=== PATIENT | male | born 1950 | race Caucasian/White ===

== ENCOUNTER 2016-12-20 12:04 | Emergency (ER) | payer MEDICARE, OTHER ==
[~2016-12-20] VITALS: Ht 177.8 cm; Wt 110.0 kg
[~2016-12-20 12:04] MED LIST: AMITRIPTYLIN10 MG PO; ASPIRIN LOW DOS81 M2 PO; CLARINEX5 MG PO; DEBROX6.5 % AU; FISH OIL1000 MG PO; KENALOG-4040 MG/ML IC; LISINOP/HCTZ1 TA2 PO; NAPROSYN500 MG PO; SERTRALINE50 MG PO; SIMVASTATIN20 MG PO; VERAPAMIL HCL240 MG PO
[2016-12-20] MEDS ORDERED: KEFLEX500 MG PO (13:21)
[2016-12-20 13:49] VITALS: BP 136/64
== END 2016-12-20 14:01 | disposition home or self-care (01) ==
LOC: ED 12:04
PROC: 0HQFXZZ Repair Right Hand Skin, External Approach (ICD-10-PCS; principal; 2016-12-20)
DX: S61.411A Laceration without foreign body of right hand, initial encounter (principal); W27.0XXA Contact with workbench tool, initial encounter; Y93.89 Activity, other specified; Y92.009 Unspecified place in unspecified non-institutional (private) residence as the place of occurrence of the external cause

== ENCOUNTER → 2018-10-19 | Outpatient (REF) | payer MEDICARE, OTHER ==
[~2018-10-19] MED LIST changes: +KEFLEX500 MG PO
[2018-10-19 08:29] LABS: HEMATOCRIT 49.6 % (39.0-50.0); HEMOGLOBIN 15.7 g/dl (14.0-18.0); IMMATURE GRANULOCYTES 0.4 % (0.0-5.0); MEAN CELL VOLUME 88.3 fL CALC (80.0-100.0); MEAN CORPUSCULAR HGB 27.9 pG CALC (26.0-32.0); MEAN CORPUSCULAR HGB CONC 31.7 g/L CALC (32.0-36.0); NEUT# 6.23 thou/uL (1.82-7.42); RED BLOOD COUNT 5.62 mill/uL (4.70-6.10); RED CELL DISTRI WIDTH 15.4 % (11.5-15.5)
[2018-10-19 09:10] LABS: URINE BILIRUBIN - DIPSTICK NEGATIVE (NEGATIVE); URINE BLOOD DIPSTICK NEGATIVE (NEGATIVE); URINE COLOR YELLOW; URINE GLUCOSE - DIPSTICK NEGATIVE (NEGATIVE); URINE KETONE NEGATIVE (NEGATIVE); URINE LEUK ESTERASE NEGATIVE (Negative); URINE NITRITE - DIPSTICK NEGATIVE (Negative); URINE PROTEIN - DIPSTICK NEGATIVE (NEG-TRACE); URINE UROBILINOGEN - DIPSTICK 0.2 E.U./dL (0.2)
[2018-10-19 09:12] LABS: URINE CLARITY CLEAR
[2018-10-19 09:15] LABS: ALBUMIN 4.5 g/dL (3.2-5.0); ALKALINE PHOSPHATASE 65 u/l (38-126); ANION GAP 15 (6-22 (CALC)); BILIRUBIN, TOTAL 0.8 mg/dL (0.0-1.4); BUN 18 mg/dL (8-23); BUN/CREATININE RATIO 21 (12-20 (CALC)); CALCULATED LDLCHOLESTEROL 46 mg/dL (62-129 (CALC)); CARBON DIOXIDE 28 mmol/l (22-30); CHLORIDE 99 mmol/l (95-108); CHOLESTEROL HDL RATIO 3.3 (<4.4 (CALC)); CREATININE 0.9 mg/dL (0.7-1.3); GFR > 60 ML/MIN (>=60 (CALC)); GFR FOR AFR.AMER. > 60 ML/MIN (>=60 (CALC)); HDL CHOLESTEROL 41 mg/dL (>=40); SGOT/AST 61 u/l (19-48); SODIUM 138 mmol/l (137-146); TOTAL CHOLESTEROL 134 mg/dl (0-199); TOTAL PROTEIN 7.5 g/dL (6.3-8.2); TOTAL TRIGLYCERIDES 236 mg/dl (30-149); VLDL CHOLESTROL 47 mg/dl (4-45 (CALC))
== END | disposition home or self-care (01) ==
LOC: LAB 07:24
PROVIDERS: ATTEND Internal Medicine
DX: I10 Essential (primary) hypertension (principal); J44.1 Chronic obstructive pulmonary disease with (acute) exacerbation; M62.81 Muscle weakness (generalized); R53.83 Other fatigue; Z12.5 Encounter for screening for malignant neoplasm of prostate

== ENCOUNTER → 2018-10-26 | Outpatient (REF) | payer MEDICARE, OTHER | END | disposition home or self-care (01) | LOC: CT 12:08 | PROVIDERS: ATTEND Internal Medicine | DX: M54.12 Radiculopathy, cervical region (principal); R51 Headache ==

== ENCOUNTER 2019-08-06 | Emergency (ER) | payer MEDICARE, OTHER ==
[2019-08-06] MEDS ORDERED: KEFLEX500 M1 PO (17:25)
== END 2019-08-06 17:40 | disposition home or self-care (01) ==
PROC: 0HQGXZZ Repair Left Hand Skin, External Approach (ICD-10-PCS; principal; 2019-08-06)
DX: S61.012A Laceration without foreign body of left thumb without damage to nail, initial encounter (principal); I10 Essential (primary) hypertension; F17.210 Nicotine dependence, cigarettes, uncomplicated; W31.2XXA Contact with powered woodworking and forming machines, initial encounter; Y93.89 Activity, other specified; Y92.009 Unspecified place in unspecified non-institutional (private) residence as the place of occurrence of the external cause

== ENCOUNTER 2020-08-23 07:47 | Day surgery (SDC) | payer MEDICARE, OTHER ==
[~2020-08-23] VITALS: Ht 177.8 cm; Wt 109.3 kg
[~2020-08-23 07:47] MED LIST changes: +EMGALITY120 MG/M1 SC; +KEFLEX500 M1 PO; +PRESERVISION ARED1 PO
[2020-08-23 10:22] VITALS: BP 119/66
== END 2020-08-23 10:30 | disposition home or self-care (01) ==
LOC: ENDO 07:47 → ORM 09:30 → ENDO 09:30
PROVIDERS: ATTEND Surgery
PROC: 0DBK8ZX Excision of Ascending Colon, Via Natural or Artificial Opening Endoscopic, Diagnostic (ICD-10-PCS; principal; 2020-08-23)
PROC: 0DBH8ZX Excision of Cecum, Via Natural or Artificial Opening Endoscopic, Diagnostic (ICD-10-PCS; 2020-08-23)
PROC: 0DBP8ZX Excision of Rectum, Via Natural or Artificial Opening Endoscopic, Diagnostic (ICD-10-PCS; 2020-08-23)
DX: Z12.11 Encounter for screening for malignant neoplasm of colon (principal); D12.2 Benign neoplasm of ascending colon; D12.0 Benign neoplasm of cecum; D12.8 Benign neoplasm of rectum; K57.30 Diverticulosis of large intestine without perforation or abscess without bleeding; I10 Essential (primary) hypertension; F17.210 Nicotine dependence, cigarettes, uncomplicated; Z86.010 Personal history of colon polyps; Z80.0 Family history of malignant neoplasm of digestive organs; Z20.822 Contact with and (suspected) exposure to COVID-19

== ENCOUNTER 2021-09-29 17:33 | Emergency (ER) | payer MEDICARE, OTHER | END 2021-09-29 18:30 | disposition left against medical advice (07) | LOC: ED 17:33 → LWOBS 18:30 | DX: Z53.21 Procedure and treatment not carried out due to patient leaving prior to being seen by health care provider (principal) ==

== ENCOUNTER 2022-01-05 12:50 | Observation (INO) | payer MEDICARE, OTHER ==
[2022-01-05] VITALS (69 sets, daily range): BP systolic 70–131; BP diastolic 40–86
[~2022-01-05] VITALS: Ht 177.8 cm; Wt 105.0 kg
[~2022-01-05 12:50] MED LIST changes: -AMITRIPTYLIN10 MG PO; +AMITRIPTYLINE H50 MG PO
[2022-01-05 13:29] LABS: GFR FOR AFR.AMER. > 60 ML/MIN (>=60 (CALC)); GFR OTHER RACES 60 ML/MIN (>=60 (CALC))
[2022-01-05 13:31] LABS: HEMATOCRIT 42.9 % (39.0-50.0); HEMOGLOBIN 14.7 g/dl (14.0-18.0); IMMATURE GRANULOCYTES 0.4 % (0.0-5.0); MEAN CELL VOLUME 86.3 fL CALC (80.0-100.0); MEAN CORPUSCULAR HGB 29.6 pG CALC (26.0-32.0); MEAN CORPUSCULAR HGB CONC 34.3 g/dL CAL (32.0-36.0); NEUT# 10.85 thou/uL (1.82-7.42); RED BLOOD COUNT 4.97 mill/uL (4.70-6.10); RED CELL DISTRI WIDTH 13.7 % (11.5-15.5)
[2022-01-05 13:42] LABS: ALBUMIN 4.1 g/dL (3.2-5.0); ALKALINE PHOSPHATASE 79 u/l (38-126); AMYLASE 211 u/l (30-110); ANION GAP 16 (6-22 (CALC)); BILIRUBIN, TOTAL 0.5 mg/dL (0.0-1.4); BUN 28 mg/dL (8-23); BUN/CREATININE RATIO 23 (12-20 (CALC)); CARBON DIOXIDE 22 mmol/l (22-30); CHLORIDE 90 mmol/l (95-108); CREATININE 1.2 mg/dL (0.7-1.3); ETHYL ALCOHOL 0 mg/dl (0-30); GFR FOR AFR.AMER. > 60 ML/MIN (>=60 (CALC)); GFR OTHER RACES 60 ML/MIN (>=60 (CALC)); LIPASE 157 u/l (23-300); POTASSIUM 4.2 mmol/l (3.5-5.1); SGOT/AST 20 u/l (19-48); SODIUM 123 mmol/l (137-146); TOTAL PROTEIN 7.2 g/dL (6.3-8.2)
[2022-01-05 13:47] LABS: ACT PARTIAL THROMBO TIME 26.5 SECONDS (20.0-32.5); PROTHROMBIN TIME 10.3 SECONDS (9.0-12.5)
[2022-01-05 15:51] LABS: URINE BILIRUBIN - DIPSTICK NEGATIVE (NEGATIVE); URINE BLOOD DIPSTICK NEGATIVE (NEGATIVE); URINE COLOR YELLOW; URINE GLUCOSE - DIPSTICK NEGATIVE (NEGATIVE); URINE KETONE NEGATIVE (NEGATIVE); URINE LEUK ESTERASE NEGATIVE (NEGATIVE); URINE PROTEIN - DIPSTICK NEGATIVE (NEG-TRACE); URINE SPECIFIC GRAVITY <=1.005; URINE UROBILINOGEN - DIPSTICK 0.2 E.U./dL (0.2)
[2022-01-05 15:56] LABS: URINE NITRITE - DIPSTICK NEGATIVE (Negative)
[2022-01-05] MEDS ORDERED: 24HR ALLERGY R180 MG (16:19)
[2022-01-05] MEDS ORDERED: UBRELVY50 MG (16:20)
[2022-01-05] MEDS ORDERED: OMEPRAZOLE DR40 MG (16:20)
[2022-01-05] MEDS ORDERED: ESCITALOPRAM OX10 MG PO (16:20)
[2022-01-06 04:02] VITALS: BP 125/61
[2022-01-06 05:42] LABS: HEMATOCRIT 40.8 % (39.0-50.0); HEMOGLOBIN 13.9 g/dl (14.0-18.0); MEAN CELL VOLUME 87.4 fL CALC (80.0-100.0); MEAN CORPUSCULAR HGB 29.8 pG CALC (26.0-32.0); MEAN CORPUSCULAR HGB CONC 34.1 g/dL CAL (32.0-36.0); RED BLOOD COUNT 4.67 mill/uL (4.70-6.10); RED CELL DISTRI WIDTH 13.5 % (11.5-15.5)
[2022-01-06 06:16] LABS: ANION GAP 11 (6-22 (CALC)); BUN 18 mg/dL (8-23); BUN/CREATININE RATIO 22 (12-20 (CALC)); CARBON DIOXIDE 21 mmol/l (22-30); CHLORIDE 97 mmol/l (95-108); CREATININE 0.8 mg/dL (0.7-1.3); GFR FOR AFR.AMER. > 60 ML/MIN (>=60 (CALC)); GFR OTHER RACES > 60 ML/MIN (>=60 (CALC)); MAGNESIUM 1.7 mg/dL (1.6-2.3); POTASSIUM 4.1 mmol/l (3.5-5.1); SODIUM 125 mmol/l (137-146)
[2022-01-06 07:22] VITALS: BP 107/64
[2022-01-06 10:20] VITALS: BP 118/66
[2022-01-06 15:30] VITALS: BP 132/70
[2022-01-06 19:25] VITALS: BP 121/65
[2022-01-06 22:37] LABS: ANION GAP 9 (6-22 (CALC)); BUN 11 mg/dL (8-23); BUN/CREATININE RATIO 15 (12-20 (CALC)); CARBON DIOXIDE 23 mmol/l (22-30); CHLORIDE 97 mmol/l (95-108); CREATININE 0.8 mg/dL (0.7-1.3); GFR FOR AFR.AMER. > 60 ML/MIN (>=60 (CALC)); GFR OTHER RACES > 60 ML/MIN (>=60 (CALC)); POTASSIUM 3.6 mmol/l (3.5-5.1); SODIUM 125 mmol/l (137-146)
[2022-01-07 00:15] VITALS: BP 140/70
[2022-01-07 04:48] VITALS: BP 127/64
[2022-01-07 06:10] LABS: HEMATOCRIT 37.3 % (39.0-50.0); HEMOGLOBIN 12.9 g/dl (14.0-18.0); MEAN CELL VOLUME 87.8 fL CALC (80.0-100.0); MEAN CORPUSCULAR HGB 30.4 pG CALC (26.0-32.0); MEAN CORPUSCULAR HGB CONC 34.6 g/dL CAL (32.0-36.0); RED BLOOD COUNT 4.25 mill/uL (4.70-6.10); RED CELL DISTRI WIDTH 13.3 % (11.5-15.5)
[2022-01-07 06:17] LABS: ANION GAP 13 (6-22 (CALC)); BUN 11 mg/dL (8-23); BUN/CREATININE RATIO 16 (12-20 (CALC)); CARBON DIOXIDE 24 mmol/l (22-30); CHLORIDE 96 mmol/l (95-108); CREATININE 0.7 mg/dL (0.7-1.3); GFR FOR AFR.AMER. > 60 ML/MIN (>=60 (CALC)); GFR OTHER RACES > 60 ML/MIN (>=60 (CALC)); MAGNESIUM 1.6 mg/dL (1.6-2.3); POTASSIUM 4.1 mmol/l (3.5-5.1); SODIUM 128 mmol/l (137-146)
[2022-01-07 07:22] VITALS: BP 123/73
[2022-01-07 10:26] VITALS: BP 124/67
[2022-01-07 14:42] VITALS: BP 120/72
[2022-01-07 20:08] VITALS: BP 128/75
[2022-01-08 00:19] VITALS: BP 122/58
[2022-01-08 05:15] VITALS: BP 124/74
[2022-01-08 07:09] VITALS: BP 132/77
[2022-01-08 08:10] VITALS: BP 117/71
[2022-01-08 10:33] VITALS: BP 117/71
[2022-01-13] MEDS ORDERED: EMGALITY100 MG/ML (12:49)
[2022-01-13] MEDS ORDERED: FISH OIL1 CAP (12:49)
[2022-01-21] MEDS ORDERED: AMOXICILLIN500 M2 PO (13:41)
[2022-01-21] MEDS ORDERED: LEVOFLOXACIN500MG PO (13:41)
== END 2022-01-08 13:03 | disposition home or self-care (01) ==
LOC: ED 12:50 → ED-I 17:35 → ED 17:40 → MS2 17:41
PROVIDERS: ADMIT Hospitalist; ATTEND Hospitalist
DX: K40.20 Bilateral inguinal hernia, without obstruction or gangrene, not specified as recurrent (principal); I95.9 Hypotension, unspecified; E87.1 Hypo-osmolality and hyponatremia; E87.8 Other disorders of electrolyte and fluid balance, not elsewhere classified; I10 Essential (primary) hypertension; E78.00 Pure hypercholesterolemia, unspecified; K91.86 Retained cholelithiasis following cholecystectomy; F32.A Depression, unspecified; R78.81 Bacteremia; F17.200 Nicotine dependence, unspecified, uncomplicated; Y83.6 Removal of other organ (partial) (total) as the cause of abnormal reaction of the patient, or of later complication, without mention of misadventure at the time of the procedure; Z86.010 Personal history of colon polyps; Z80.0 Family history of malignant neoplasm of digestive organs; Z96.612 Presence of left artificial shoulder joint; Z20.822 Contact with and (suspected) exposure to COVID-19
CPT/HCPCS: J1650; Q9967

== ENCOUNTER 2022-01-16 09:32 | Day surgery (SDC) | payer MEDICARE, OTHER ==
[~2022-01-16] VITALS: Ht 175.3 cm; Wt 104.8 kg
[~2022-01-16 09:32] MED LIST changes: +24HR ALLERGY R180 MG; +EMGALITY100 MG/ML; +ESCITALOPRAM OX10 MG PO; +FISH OIL1 CAP; +OMEPRAZOLE DR40 MG; +UBRELVY50 MG
[2022-01-16] MEDS ORDERED: PERCOCET 5/321 COMBO PO (12:50)
[2022-01-16] MEDS ORDERED: OMEPRAZOLE20 MG PO (12:51)
[2022-01-16 13:20] VITALS: BP 114/64
[2022-01-21] MEDS ORDERED: AMOXICILLIN500 M2 PO (13:41)
[2022-01-21] MEDS ORDERED: LEVOFLOXACIN500MG PO (13:41)
== END 2022-01-16 13:42 | disposition home or self-care (01) ==
LOC: ORM 09:32
PROVIDERS: ATTEND Surgery
PROC: 0YUA4JZ Supplement Bilateral Inguinal Region with Synthetic Substitute, Percutaneous Endoscopic Approach (ICD-10-PCS; principal; 2022-01-16)
PROC: 0DB98ZX Excision of Duodenum, Via Natural or Artificial Opening Endoscopic, Diagnostic (ICD-10-PCS; 2022-01-16)
PROC: 0DB68ZX Excision of Stomach, Via Natural or Artificial Opening Endoscopic, Diagnostic (ICD-10-PCS; 2022-01-16)
PROC: 0DB48ZX Excision of Esophagogastric Junction, Via Natural or Artificial Opening Endoscopic, Diagnostic (ICD-10-PCS; 2022-01-16)
DX: K40.20 Bilateral inguinal hernia, without obstruction or gangrene, not specified as recurrent (principal); D17.6 Benign lipomatous neoplasm of spermatic cord; K29.70 Gastritis, unspecified, without bleeding; B96.81 Helicobacter pylori [H. pylori] as the cause of diseases classified elsewhere; K29.80 Duodenitis without bleeding; K44.9 Diaphragmatic hernia without obstruction or gangrene; K20.90 Esophagitis, unspecified without bleeding; K22.70 Barrett's esophagus without dysplasia
CPT/HCPCS: C1781; J0131; J1100

== ENCOUNTER 2022-07-30 15:34 | Emergency (ER) | payer MEDICARE, OTHER ==
[~2022-07-30] VITALS: Ht 175.3 cm; Wt 106.0 kg
[2022-07-30] VITALS (11 sets, daily range): BP systolic 122–133; BP diastolic 64–77
[~2022-07-30 15:34] MED LIST changes: +AMOXICILLIN500 M2 PO; +LEVOFLOXACIN500MG PO; +OMEPRAZOLE20 MG PO; +PERCOCET 5/321 COMBO PO
[2022-07-30] MEDS ORDERED: PERCOCET1 TA2 PO (17:43)
[2022-07-30] MEDS ORDERED: KEFLEX500 MG PO (17:43)
== END 2022-07-30 18:24 | disposition home or self-care (01) ==
LOC: ED 15:34
PROC: 0JQK0ZZ Repair Left Hand Subcutaneous Tissue and Fascia, Open Approach (ICD-10-PCS; principal; 2022-07-30)
DX: S61.012A Laceration without foreign body of left thumb without damage to nail, initial encounter (principal); S62.512A Displaced fracture of proximal phalanx of left thumb, initial encounter for closed fracture; I10 Essential (primary) hypertension; F17.200 Nicotine dependence, unspecified, uncomplicated; W31.2XXA Contact with powered woodworking and forming machines, initial encounter; Y92.009 Unspecified place in unspecified non-institutional (private) residence as the place of occurrence of the external cause

== ENCOUNTER 2022-08-22 19:47 | Emergency (ER) | payer MEDICARE, OTHER ==
[~2022-08-22] VITALS: Ht 175.3 cm; Wt 107.0 kg
[2022-08-22] VITALS (8 sets, daily range): BP systolic 121–144; BP diastolic 70–86
[~2022-08-22 19:47] MED LIST changes: +PERCOCET1 TA2 PO
[2022-08-22] MEDS ORDERED: AMOXICILLIN500 MG PO (22:32)
== END 2022-08-22 22:42 | disposition home or self-care (01) ==
LOC: ED 19:47
PROC: 0HQGXZZ Repair Left Hand Skin, External Approach (ICD-10-PCS; principal; 2022-08-22)
DX: T81.33XA Disruption of traumatic injury wound repair, initial encounter (principal); S61.012A Laceration without foreign body of left thumb without damage to nail, initial encounter; I10 Essential (primary) hypertension; F17.200 Nicotine dependence, unspecified, uncomplicated; Y83.8 Other surgical procedures as the cause of abnormal reaction of the patient, or of later complication, without mention of misadventure at the time of the procedure; W31.2XXA Contact with powered woodworking and forming machines, initial encounter

== ENCOUNTER 2022-08-23 20:11 | Emergency (ER) | payer MEDICARE, OTHER ==
[~2022-08-23] VITALS: Ht 175.3 cm; Wt 107.0 kg
[~2022-08-23 20:11] MED LIST changes: +AMOXICILLIN500 MG PO
[2022-08-23 20:33] VITALS: BP 146/78
== END 2022-08-23 20:37 | disposition home or self-care (01) ==
LOC: ED 20:11
DX: S61.012D Laceration without foreign body of left thumb without damage to nail, subsequent encounter (principal); I10 Essential (primary) hypertension; F17.200 Nicotine dependence, unspecified, uncomplicated; X58.XXXD Exposure to other specified factors, subsequent encounter

== ENCOUNTER 2022-08-26 19:10 | Emergency (ER) | payer MEDICARE, OTHER ==
[~2022-08-26] VITALS: Ht 175.3 cm; Wt 106.3 kg
[2022-08-26 20:35] VITALS: BP 131/87
== END 2022-08-26 20:34 | disposition home or self-care (01) ==
LOC: ED 19:10
DX: S61.012D Laceration without foreign body of left thumb without damage to nail, subsequent encounter (principal); X58.XXXD Exposure to other specified factors, subsequent encounter; I10 Essential (primary) hypertension; F17.200 Nicotine dependence, unspecified, uncomplicated

== ENCOUNTER 2022-08-29 19:54 | Emergency (ER) | payer MEDICARE, OTHER ==
[~2022-08-29] VITALS: Ht 175.3 cm; Wt 106.6 kg
[2022-08-29 20:27] VITALS: BP 130/81
[2022-08-29 20:31] VITALS: BP 135/76
[2022-08-29 20:45] VITALS: BP 137/86
[2022-08-29 20:56] VITALS: BP 137/86
== END 2022-08-29 21:00 | disposition home or self-care (01) ==
LOC: ED 19:54
DX: S61.012D Laceration without foreign body of left thumb without damage to nail, subsequent encounter (principal); X58.XXXD Exposure to other specified factors, subsequent encounter

== ENCOUNTER 2022-12-08 06:28 | Day surgery (SDC) | payer MEDICARE, OTHER ==
[~2022-12-08] VITALS: Ht 175.3 cm; Wt 104.8 kg
[~2022-12-08 06:28] MED LIST changes: +NURTEC75 MG IM; +RYTARY 36.25-141 CAP PO; +[UNRECOGNIZED DRUG - OTHER] IN
[2022-12-08 09:51] VITALS: BP 167/97
== END 2022-12-08 09:40 | disposition home or self-care (01) ==
LOC: ENDO 06:28 → ORM 07:30 → ENDO 09:40
PROVIDERS: ATTEND Internal Medicine Gastroenterology
PROC: 0DBM8ZX Excision of Descending Colon, Via Natural or Artificial Opening Endoscopic, Diagnostic (ICD-10-PCS; principal; 2022-12-08)
PROC: 0DBP8ZX Excision of Rectum, Via Natural or Artificial Opening Endoscopic, Diagnostic (ICD-10-PCS; 2022-12-08)
PROC: 0DB98ZX Excision of Duodenum, Via Natural or Artificial Opening Endoscopic, Diagnostic (ICD-10-PCS; 2022-12-08)
PROC: 0DB78ZX Excision of Stomach, Pylorus, Via Natural or Artificial Opening Endoscopic, Diagnostic (ICD-10-PCS; 2022-12-08)
PROC: 0DB48ZX Excision of Esophagogastric Junction, Via Natural or Artificial Opening Endoscopic, Diagnostic (ICD-10-PCS; 2022-12-08)
DX: K25.4 Chronic or unspecified gastric ulcer with hemorrhage (principal); K29.51 Unspecified chronic gastritis with bleeding; K57.31 Diverticulosis of large intestine without perforation or abscess with bleeding; K44.9 Diaphragmatic hernia without obstruction or gangrene; K63.5 Polyp of colon; D12.8 Benign neoplasm of rectum; K64.8 Other hemorrhoids; D50.9 Iron deficiency anemia, unspecified; Z80.0 Family history of malignant neoplasm of digestive organs

== ENCOUNTER 2024-01-27 13:17 | Emergency (ER) | payer MEDICARE, OTHER ==
[~2024-01-27] VITALS: Ht 175.3 cm; Wt 104.8 kg
[2024-01-27 13:35] VITALS: BP 130/83
[2024-01-27 13:46] VITALS: BP 134/79
[2024-01-27 14:00] VITALS: BP 144/89
[2024-01-27 14:15] VITALS: BP 130/78
== END 2024-01-27 14:24 | disposition home or self-care (01) ==
LOC: ED 13:17
PROC: 0HQ0XZZ Repair Scalp Skin, External Approach (ICD-10-PCS; principal; 2024-01-27)
DX: S01.01XA Laceration without foreign body of scalp, initial encounter (principal); G20.A1 Parkinson's disease without dyskinesia, without mention of fluctuations; I10 Essential (primary) hypertension; F17.200 Nicotine dependence, unspecified, uncomplicated; W22.8XXA Striking against or struck by other objects, initial encounter; Y93.H3 Activity, building and construction

== ENCOUNTER 2024-02-05 07:38 | Emergency (ER) | payer MEDICARE, OTHER ==
[~2024-02-05] VITALS: Ht 175.3 cm; Wt 105.0 kg
[2024-02-05 07:51] VITALS: BP 162/90
[2024-02-05 08:01] VITALS: BP 165/92
[2024-02-05 08:02] VITALS: BP 165/92
== END 2024-02-05 08:05 | disposition home or self-care (01) ==
LOC: ED 07:38
DX: S01.01XD Laceration without foreign body of scalp, subsequent encounter (principal); X58.XXXD Exposure to other specified factors, subsequent encounter; I10 Essential (primary) hypertension; G20.A1 Parkinson's disease without dyskinesia, without mention of fluctuations; F17.200 Nicotine dependence, unspecified, uncomplicated

== ENCOUNTER 2024-08-22 22:01 | Emergency (ER) | payer MEDICARE, OTHER ==
[~2024-08-22] VITALS: Ht 175.3 cm; Wt 75.0 kg
[2024-08-23 00:18] VITALS: BP 154/98
[2024-08-23 00:31] VITALS: BP 130/94
[2024-08-23 00:56] VITALS: BP 130/94
== END 2024-08-23 00:56 | disposition home or self-care (01) ==
LOC: ED 22:01
DX: S01.511A Laceration without foreign body of lip, initial encounter (principal); W45.8XXA Other foreign body or object entering through skin, initial encounter; Y93.E8 Activity, other personal hygiene; Y92.002 Bathroom of unspecified non-institutional (private) residence as the place of occurrence of the external cause; I10 Essential (primary) hypertension; G20.A1 Parkinson's disease without dyskinesia, without mention of fluctuations; F17.200 Nicotine dependence, unspecified, uncomplicated